=== PATIENT | female | born 1975 | race Two or more races ===

== ENCOUNTER 2023-12-21 10:37 | Emergency (ER) | payer OTHER ==
[~2023-12-21] VITALS: Ht 154.9 cm; Wt 63.5 kg
[2023-12-21] MEDS ORDERED: KETOROLAC TROMETHAMINE 30 MG VIAL IM STA (12:27)
[2023-12-21] MEDS ORDERED: ORPHENADRINE CITRATE 30 MG/ML AMPUL IM STA (12:27)
== END 2023-12-21 13:00 | disposition home or self-care (01) ==
LOC: ER 10:39
DX: G44.209 Tension-type headache, unspecified, not intractable (principal); F48.9 Nonpsychotic mental disorder, unspecified

== ENCOUNTER 2023-12-24 12:07 | Outpatient (CLI) | payer OTHER | END 2023-12-24 12:24 | disposition home or self-care (01) | LOC: TOM 12:07 | DX: G44.59 Other complicated headache syndrome (principal) ==

== ENCOUNTER → 2023-12-25 06:45 | Outpatient (CLI) | payer OTHER ==
[2023-12-25 07:18] LABS: HEMATOCRIT 34.5 % (36.0-45.00); HEMOGLOBIN 11.4 g/dL (12.0-15.00); MEAN CELL VOLUME 74.7 fL (80.00-100.00); MEAN CORPUSCULAR HEMOGLOBIN 24.7 pg (27.00-32.0); PLATELET COUNT 353 K/uL (150-450); RED BLOOD COUNT 4.62 M/uL (4.00-6.00); RED CELL DISTRIBUTION WIDTH 15.9 % (11.5-14.5)
[2023-12-25 07:44] LABS: URINE APPEARANCE Clear; URINE BILIRRUBIN Negative (NEGATIVE); URINE BLOOD Small; URINE COLOR Yellow; URINE GLUCOSE Negative (NEGATIVE); URINE KETONE Negative (NEGATIVE); URINE LEUKOCYTE Negative; URINE NITRATE Negative; URINE PROTEIN Negative (NEGATIVE); URINE UROBILINOGEN 0.2 E.U./dl
[2023-12-25 07:48] LABS: URINE BACTERIA 21.4 uL (0.0-1933); URINE EPITHELIAL CELLS 5.5 uL (0.0-38.8); URINE RBC 47.7 uL (0.0-20.8); URINE WBC 4.1 uL (0.0-23.2)
[2023-12-25 08:11] LABS: ALBUMIN 3.7 gm/dL (3.4-5.0); BILIRUBIN TOTAL 0.34 mg/dL (0.3-1.2); CALCIUM 9.2 mg/dL (8.5-10.1); CHOL HDL RATIO 5.4 (0-5.0); CREATININE SERUM 0.62 mg/dL (0.55-1.02); GFR 103.18; GLOBULINA 3.2 G/DL (2.4-3.5); POTASSIUM 4.6 mEq/L (3.5-5.1); T4 FREE 0.95 NG/ML (0.76-1.46); TOTAL PROTEIN 6.9 gm/dL (6.4-8.2); TSH 2.58 uIU/mL (0.358-3.74)
[2023-12-25 12:03] LABS: T3 TOTAL 1.31 ng/ml (0.846-2.02); VITAMIN D3 25 HYDROXY 12.16 ng/ml (30-120)
== END | disposition home or self-care (01) ==
LOC: LAB 06:45
DX: E03.9 Hypothyroidism, unspecified (principal); E78.00 Pure hypercholesterolemia, unspecified; E55.9 Vitamin D deficiency, unspecified; R73.09 Other abnormal glucose; N39.0 Urinary tract infection, site not specified; R79.9 Abnormal finding of blood chemistry, unspecified